=== PATIENT | male | born 1995 | race Caucasian/White ===

== ENCOUNTER 2019-01-08 14:00 | Emergency (ER) | payer OTHER ==
[2019-01-08 14:16] VITALS: BP 148/84; PULSE 63; TEMP 97.6; BMI 24.9
[2019-01-08] MEDS ORDERED: DIPHTH,PERTUSS(ACELL),TET 0.5 ML DISP.SYRIN IM ONE ×2 (14:16→14:37)
--- NOTE | 2019-01-08 14:16 | PDOC ---
Rapid Medical Evaluation Time Seen by Provider: 01/08/19 14:12 Medical Evaluation: Allergies Allergy/AdvReac Type Severity Reaction Status Date / Time No Known Allergies Allergy Verified 01/08/19 14:12 01/08/19 14:12 I have performed a brief in-person evaluation of this patient. The patient presents with a chief complaint of: right eye pain x1 day. 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 EOMI. Scleral erythema to 8 o'clock position I have ordered the following: nothing The patient will proceed to the ED for further evaluation. Discharge Disposition - Diagnosis Eye pain - Referrals - Patient Instructions - Post Discharge Activity
--- NOTE | 2019-01-08 15:16 | PDOC ---
History of Present Illness - General Chief Complaint: Eye Problem Stated Complaint: INJURY Time Seen by Provider: 01/08/19 14:12 - History of Present Illness Initial Comments: 01/08/19 15:12 23-year-old male without comorbidities presents for right eye irritation after working with a copper pipe yesterday. He feels a retained foreign body. Past History - Past Medical History Allergies/Adverse Reactions: Allergies Allergy/AdvReac Type Severity Reaction Status Date / Time No Known Allergies Allergy Verified 01/08/19 14:12 Home Medications: Ambulatory Orders Tobramycin 0.3% Ophth Soln [Tobrex Ophthalmic Solution -] 1 drop OD Q4HWA #1 bottle 01/08/19 COPD: No - Immunization History Immunization Up to Date: No - Suicide/Smoking/Psychosocial Hx Smoking History: Current some day smoker Information on smoking cessation initiated: No Hx Alcohol Use: Yes Drug/Substance Use Hx: No Review of Systems - Review of Systems Constitutional: No: Fever HEENTM: Yes: Tearing *Physical Exam - Vital Signs Last Vital Signs Temp Pulse Resp BP Pulse Ox 97.6 F 63 18 148/84 100 01/08/19 14:14 01/08/19 14:14 01/08/19 14:14 01/08/19 14:14 01/08/19 14:14 - Physical Exam Comments: 01/08/19 15:12 Conjunctival injection no visualized foreign body or gross corneal abrasion ED Treatment Course - Medications Given in the ED: ED Medications Discontinued Medications Generic Name Dose Route Start Last Admin Trade Name Freq PRN Reason Stop Dose Admin Diphtheria/Tetanus/Acell Pertussis 0.5 ml 01/08/19 14:16 01/08/19 14:41 Boostrix - IM 01/08/19 14:17 0.5 ml .ONCE ONE Administration Medical Decision Making - Medical Decision Making 01/08/19 15:13 With tobramycin eyedrops and ophthalmology follow-up *DC/Admit/Observation/Transfer Diagnosis at time of Disposition: Eye pain - Discharge Dispostion Disposition: HOME Condition at time of disposition: Stable Decision to Admit order: No - Referrals Referrals: Loy Rajput MD [Staff Physician] - - Patient Instructions Printed Discharge Instructions: DI for Corneal Foreign Body-Eye, DI for Corneal Abrasion, Corneal Abrasion Additional Instructions: Use the antibiotic drops as directed follow-up with ophthalmology in 1 day without fail return to the emergency room for worsening symptoms. - Post Discharge Activity
== END 2019-01-08 16:15 | disposition home or self-care (01) ==
LOC: JERFT 14:00
DX: H57.11 Ocular pain, right eye (principal)
CPT/HCPCS: 90715; 99281-25